=== PATIENT | female | born 1970 | race Caucasian/White ===

== ENCOUNTER 2020-11-03 08:31 | Emergency (ER) | payer MEDICAID ==
[~2020-11-03] VITALS: Ht 162.6 cm; Wt 67.3 kg
[2020-11-03] MEDS ORDERED: FLUO-191 PO (08:44)
[2020-11-03] MEDS ORDERED: ARIP5TAB8 PO (08:44)
[2020-11-03] MEDS ORDERED: ATOM60CA7 PO (08:44)
[2020-11-03] MEDS ORDERED: LAMO100 PO (08:44)
[2020-11-03 10:14] VITALS: BP 125/77
== END 2020-11-03 10:15 | disposition home or self-care (01) ==
LOC: EMS 08:38
DX: S46.911A Strain of unspecified muscle, fascia and tendon at shoulder and upper arm level, right arm, initial encounter (principal); F32.9 Major depressive disorder, single episode, unspecified; X58.XXXA Exposure to other specified factors, initial encounter; Y93.89 Activity, other specified; Y92.89 Other specified places as the place of occurrence of the external cause; Y99.8 Other external cause status
CPT/HCPCS: 99282; Z7502